=== PATIENT | female | born 1995 | race Two or more races ===

== ENCOUNTER 2018-09-14 12:49 | Emergency (ER) | payer SELFPAY ==
[~2018-09-14] VITALS: Ht 167.6 cm; Wt 76.2 kg
[2018-09-14 13:39] VITALS: BP 114/82
--- NOTE | 2018-09-14 14:21 | NUR ---
DARA AT BEDSIDE FOR EVAL.
--- NOTE | 2018-09-14 14:34 | NUR ---
Patient discharged to home in stable condition. Written and verbal after care instructions given. Patient verbalizes understanding of instruction.
== END 2018-09-14 14:35 | disposition home or self-care (01) ==
LOC: ER 12:49
DX: J02.9 Acute pharyngitis, unspecified (principal)

== ENCOUNTER 2018-09-16 10:43 | Emergency (ER) | payer SELFPAY ==
[~2018-09-16] VITALS: Ht 167.6 cm; Wt 80.7 kg
--- NOTE | 2018-09-16 10:49 | NUR ---
CAME IN FOR HEADACHE SINCE THURSDAY, STATES WORST TODAY. -N/V, ALSO C/O CONGESTION. TO ER BED 9, HOOKED TO MONITOR, CHANGED TO GOWN, PROVIDED W WARM BLANKET, AWAITING MD COPE
--- NOTE | 2018-09-16 11:35 | NUR ---
DR SAUCEDA AT BEDSIDE
[2018-09-16] MEDS ORDERED: KETOROLAC TROMETHAMINE INJ 30 MG/ML VIAL IV ONE (12:00)
[2018-09-16] MEDS ORDERED: IV NS 0.9% 1,000 ML BAG IV ONE (12:00)
[2018-09-16] MEDS ORDERED: PSEUDOEPHEDRINE HCL 30 MG TABLET PO ONE (12:00)
[2018-09-16] MEDS ORDERED: KETOROLAC TROMETHAMINE INJ 60 MG/2 ML VIAL IM ONE (12:04)
[2018-09-16] MEDS ORDERED: PSEUDOEPHEDRINE HCL 30 MG TABLET ONE (12:05)
--- NOTE | 2018-09-16 13:10 | NUR ---
IV removed. Catheter intact and site benign. Pressure and 4x4 applied to site. No bleeding noted.Patient discharged to home in stable condition. Written and verbal after care instructions given. Patient verbalizes understanding of instruction.
[2018-09-16 13:19] VITALS: BP 124/81
== END 2018-09-16 13:20 | disposition home or self-care (01) ==
LOC: ER 10:43
DX: J32.9 Chronic sinusitis, unspecified (principal); E86.0 Dehydration
CPT/HCPCS: 96361; 96374; 99283; J1885; J7030

== ENCOUNTER 2021-12-18 17:36 | Emergency (ER) | payer OTHER ==
[~2021-12-18] VITALS: Ht 167.6 cm; Wt 78.0 kg
--- NOTE | 2021-12-18 17:48 | NUR ---
BIB [facility] C/O BODY PAIN SINCE LAST NIGHT,"SOMETHING IS EATING ME INSIDE". TO ER BED 2, HOOKED TO MONITOR, CHANGED TO HOSP GOWN, WARM BLANKET PROVIDED. AWAITING MD COPE
--- NOTE | 2021-12-18 18:22 | NUR ---
[employer]ICER AT BEDSIDE
[2021-12-18] MEDS ORDERED: KETOROLAC TROMETHAMINE INJ 60 MG/2 ML VIAL IM ONE (18:30)
[2021-12-18] MEDS ORDERED: KETOROLAC TROMETHAMINE INJ 30 MG/ML VIAL ONE (18:39)
--- NOTE | 2021-12-18 18:42 | NUR ---
SIGNED WAIVER, LMP 12/15/21, "IUD 8 MONTHS AGO"
[2021-12-18] MEDS ORDERED: ONDANSETRON HCL/PF 4 MG/2 ML VIAL IVP ONE (19:00)
[2021-12-18] MEDS ORDERED: IV NS 0.9% 1,000 ML BAG IV ONE (19:00)
--- NOTE | 2021-12-18 19:22 | NUR ---
RAPID NFLUENZA AND RAPID COVID SWAB DONE AND SENT TO LAB
[2021-12-18] MEDS ORDERED: ONDANSETRON HCL/PF 4 MG/2 ML VIAL ONE (19:38)
[2021-12-18 19:41] LABS: CALCIUM, SERUM 8.7 mg/dL (8.5-10.1); CREATININE 0.7 mg/dL (0.6-1.3); POTASSIUM 3.5 mmol/L (3.5-5.1)
--- NOTE | 2021-12-18 19:45 | NUR ---
RECEIVED REPORT FROM AM SHIFT. PATIENT IS HERE FOR BODY PAIN. SHE IS AAOX4. ABLE TO MAKE NEEDS KNOWN. PATIENT HAS BANDAGE WRAP ON HER RIGHT WRIST AND HAND. PER PATIENT SHE IS SCHEDULE FOR SURGERY TO REPAIR THE FRACTURE OF WRIST TOMORROW. PATIENT IS ASKING ABOUT HER OLD SURGERY ON HER BELLY BUTTON. SHE MENTIONED THAT SHE HAD IT YEARS AGO AND NOW THERE IS ONE SUTURE LINE VISIBLE IN THE AREA. NO DRAINAGE NOTED FOR NOW BUT PATIENT IS ASKING IF WE CAN HAVE IT REMOVED. WILL INFORM MD. VITALS CHECKED
--- NOTE | 2021-12-18 20:00 | NUR ---
IV CANNULA G20 INSERTED ON LEFT AC.
[2021-12-18 20:05] LABS: BASOPHILS % (AUTO) 0.1 % (0.0-2.0); HEMATOCRIT 43 % (33-45); HEMOGLOBIN 14.2 g/dL (11.5-14.8); LYMPHOCYTES # (AUTO) 0.7 K/uL (0.8-4.8); LYMPHOCYTES % (AUTO) 5.1 % (20.0-44.0); MEAN CORPUSCULAR HGB CONC 33 g/dl (31.0-36.0); MEAN CORPUSCULAR VOLUME 81 fL (82-100); MONOCYTES # (AUTO) 0.4 K/uL (0.1-1.30); MONOCYTES % (AUTO) 3.3 % (2.0-12.0); NEUTROPHILS # (AUTO) 12.1 K/uL (1.8-8.9); NEUTROPHILS % (AUTO) 91.5 % (43.0-81.0); PLATELET COUNT (AUTO) 223 K/uL (150-450); RED BLOOD CELL COUNT(AUTO) 5.23 MIL/uL (4.0-5.2); WHITE BLOOD COUNT (AUTO) 13.3 K/uL (4.3-11.0)
--- NOTE | 2021-12-18 20:45 | NUR ---
THI QUINN TRIED TO REMOVE THE SUTURE BUT IT IS CONNECTED TO A MESH INSIDE. PATIENT IS INSTRUCTED TO GO SEE PCP. MEDICINE APPLIED. DRESSING DONE.
[2021-12-18] MEDS ORDERED: MUPI22OI2 TP (21:03)
--- NOTE | 2021-12-18 21:10 | NUR ---
IV CANNULA REMOVED
--- NOTE | 2021-12-18 21:17 | NUR ---
Patient discharged to home in stable condition. Written and verbal after care instructions given. Patient verbalizes understanding of instruction.
[2021-12-18 21:18] VITALS: BP 98/66
== END 2021-12-18 21:18 | disposition home or self-care (01) ==
LOC: ER 17:45
DX: R52 Pain, unspecified (principal); Z20.822 Contact with and (suspected) exposure to COVID-19; J02.9 Acute pharyngitis, unspecified; R05.9 Cough, unspecified; R68.83 Chills (without fever); D72.829 Elevated white blood cell count, unspecified
CPT/HCPCS: 99284; 96374; 87426; 87804; 85025; 80048; 36415; 96372; J1885; J2405; J7030; C9803